=== PATIENT | female | born 1975 | race Caucasian/White ===

== ENCOUNTER → 2025-01-31 14:53 | Outpatient (REF) | payer OTHER, SELFPAY ==
[2025-01-31 19:08] LABS: Urine Character Clear (Clear)
[2025-01-31 19:26] LABS: Urine Squamous Cell 0-2 /LPF (Few)
== END ==
LOC: REG 14:53
PROVIDERS: ATTENDING PHYSICIAN Nurse Practitioner Women's Health; FAMILY PHYSICIAN Internal Medicine
DX: R39.9 Unspecified symptoms and signs involving the genitourinary system (principal)
CPT/HCPCS: 81003; 81015; 87086